=== PATIENT | male | born 1960 | race Caucasian/White ===

== ENCOUNTER 2018-05-23 19:33 | Emergency (ER) | payer MEDICARE, OTHER ==
[2018-05-23 19:48] VITALS: TEMP 98.4
[2018-05-23] MEDS ORDERED: KETOROLAC 30 MG/ML 1 ML VIAL IVP STA (20:34)
[2018-05-23] MEDS ORDERED: SODIUM CHLORIDE 0.9% 1,000 ML IV ONE (20:34)
[2018-05-23] MEDS ORDERED: MORPHINE SULFATE 2 MG/ML SYRINGE IVP STA (20:34)
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
[2018-05-23 21:54] LABS: Basophils % (A) 0 %; Eosinophils # (A) 0.2 k/uL (0-0.7); Eosinophils % (A) 1 %; HCT 44.7 % (39.0-53.0); HGB 14.8 gm/dL (13.0-17.5); Lymphocytes # (A) 2.5 k/uL (1.0-4.8); Lymphocytes % (A) 18 %; MCH 29.4 pg (25.0-35.0); MCHC 33.2 g/dL (31.0-37.0); MCV 88.5 fL (80.0-100.0); Mean Platelet Volume 8.4; Monocytes # (A) 0.5 k/uL (0-1.0); Monocytes % (A) 4 %; Neutrophils # (A) 10.5 k/uL (1.3-7.7); Neutrophils % (A) 76 %; Platelet Count 191 k/uL (150-450); RBC 5.05 m/uL (4.30-5.90); RDW 13.2 % (11.5-15.5); WBC 13.9 k/uL (3.8-10.6)
[2018-05-23] MEDS ORDERED: SULFAMETH-TMP DS STARTER PACK 2 TAB BTL PO STA (22:03)
[2018-05-23] MEDS ORDERED: NAFCILLIN 2 GM in DEXTROSE 5% IN WATER 50 ML IVPB STA ×2 (22:03)
[2018-05-23 22:05] LABS: ALT 18 U/L (21-72); AST 25 U/L (17-59); Albumin 4.2 g/dL (3.5-5.0); Alkaline Phosphatase 56 U/L (38-126); Anion Gap 10 mmol/L; Blood Urea Nitrogen 13 mg/dL (9-20); Calcium 9.3 mg/dL (8.4-10.2); Carbon Dioxide 24 mmol/L (22-30); Chloride 106 mmol/L (98-107); Glucose 89 mg/dL (74-99); Potassium 4.3 mmol/L (3.5-5.1); Sodium 140 mmol/L (137-145); Total Bilirubin 0.7 mg/dL (0.2-1.3); Total Protein 7.4 g/dL (6.3-8.2)
[2018-05-23] MEDS ORDERED: CEPHALEXIN 500MG STARTER PACK 4 CAP BTL PO STA (22:13)
[2018-05-23 23:58] VITALS: BP 125/78; PULSE 71; RESP 16
== END 2018-05-23 23:59 | disposition home or self-care (01) ==
LOC: EC 19:33
DX: T81.4XXA Infection following a procedure, initial encounter (principal); D72.829 Elevated white blood cell count, unspecified; F17.200 Nicotine dependence, unspecified, uncomplicated; Z85.828 Personal history of other malignant neoplasm of skin; Z79.891 Long term (current) use of opiate analgesic
CPT/HCPCS: 36415; 80053; 85025; 87040; 99283; 96365; 96375 ×2; 96361; J1885; J2270

== ENCOUNTER → 2019-11-11 | Outpatient (CLI) | payer MEDICARE, OTHER ==
--- NOTE | 2019-11-11 10:09 | CTL ---
EXAMINATION TYPE: CT Low Dose Lung DATE OF EXAM ORDERED: 11/11/2019 HISTORY: Personal history of tobacco abuse. Lung cancer screening CT DLP: 98.[address] CTDI: 2.7 mGy Automated exposure control for dose reduction was used. SCREENING VISIT: Initial COMPARISON: None TECHNIQUE: Low dose computed tomography scan was performed through the chest at 1 mm thick sections a nd reconstructed images in the coronal plane at [address] DIAGNOSTIC QUALITY: Satisfactory FINDINGS: LUNG NODULES: Present, detailed below: There is a left upper lobe masslike consolidation measuring 3.5 x 2.5 cm with spiculated borders and internal air bronchograms. There is surrounding groundglass density. This abuts the mediastinal borde r on image 156 and is measured on image 154. This begins at the distal aspect of a segmental bronchus to the left upper lobe and would be amenable to bronchoscopy. There is a 3 mm solid pulmonary nodule in the anterolateral right upper lobe on series 4 image 115. There is a 5 x 3 mm solid pulmonary nodule in the lateral right lower lobe on image 201. Benign calcified right basilar punctate pulmonary nodule on image 223. There is a punctate 1 x 1 mm left upper lobe pulmonary nodule on image 29.a this appears solid in justin ure. LUNGS: COPD: Severity: Mild Fibrosis: Severity: None Lymph nodes: Nonenlarged Other findings: Minimal bibasilar subsegmental atelectasis. RIGHT PLEURAL SPACE: Effusion: None Calcification: None Thickening: None Pneumothorax: None LEFT PLEURAL SPACE: Effusion: None Calcification: None Thickening: None Pneumothorax: None HEART: Heart Size: Nonenlarged Coronary calcification: Moderate Pericardial effusion: None OTHER FINDINGS: Upper abdomen: Unenhanced limited portions are suboptimally evaluated however there appears to be a l obulated border of the left hepatic lobe near the fissure for the falciform ligament concerning for h epatic mass measuring 4.2 x 3.4 cm. Very small hiatal hernia. Bony thorax: Mild multilevel degenerative change of the spine. IMPRESSION: 1. LUNG RADS 4B, suspicious, findings for which additional diagnostic testing and/or tissue sampling is recommended. The left upper lobe mass appears amenable to bronchoscopy and biopsy with bronchoscop y would be recommended and/or PET CT. Additional pulmonary nodules are seen bilaterally that are subc entimeter. 2. Hepatic mass for which further characterization with three-phase enhanced CT abdomen is recommende d. FOLLOW UP CT CHEST RECOMMENDATION: Follow-up with clinician for suspicious findings CT LUNG RAD: IVb A Yellow level critical message alert has been initiated for Eve Yung MD via the [employer] Critical Results System on 11/11/2019 10:07 AM. This message alert has been sent to Eve Elizabeth MD via the preferences provided by the clinician for the receipt of Radiology Critical Findings . Message ID [id number].
== END | disposition home or self-care (01) ==
LOC: RADCTMAIN 09:13
PROVIDERS: ATTEND Family Medicine
DX: Z12.2 Encounter for screening for malignant neoplasm of respiratory organs (principal); R91.8 Other nonspecific abnormal finding of lung field; Z87.891 Personal history of nicotine dependence

== ENCOUNTER → 2019-11-15 | Outpatient (CLI) | payer MEDICARE, OTHER ==
--- NOTE | 2019-11-17 07:55 | PE ---
EXAMINATION TYPE: PET CT fusion whole body DATE OF EXAM: 11/15/2019 COMPARISON: Low dose lung CT dated 11/11/2019 HISTORY: Lung nodule. History of melanoma in 2018 of the right back/shoulder. TECHNIQUE: Following the intravenous administration of 9.711 mCi of F-18 FDG, whole body images are performed from the skull base to the midthigh. Images are reviewed on the computer in the coronal, a xial, and sagittal planes. Reconstructed rotating images are created on independent workstation and reviewed on the computer. A localization and attenuation correction CT is performed in conjunction with the PET scan. SCAN: Initial treatment strategy FINDINGS: Mediastinal background: 1.77 Abdominal background: 2.88 SKULL BASE AND NECK: No suspicious hypermetabolic uptake. CHEST, MEDIASTINUM, AND HILAR REGION: The previously seen masslike consolidation of the left upper lo be that measured 3.5 x 2.5 cm on the exam of 11/15/2011 appears slightly smaller in size on today's ex am measuring 2.4 x 2.0 cm, however surrounding atelectasis may have resolved and this does remain bang picious as there is hypermetabolic uptake with a maximum SUV of 4.26. Bronchoscopy is recommended. No suspicious hilar nor supraclavicular adenopathy. Particularly no hypermetabolic uptake is seen of the right shoulder/back in the area of scarring from prior surgical removal of melanoma on series 3 image 90. The other scattered subcentimeter pulmonary nodules seen on the prior CT of 11/11/2019 are below the t hreshold of PET CT at this time given their small size. ABDOMEN AND PELVIS: No suspicious hypermetabolic uptake. There is no suspicious uptake along the lobu lated border of the left hepatic lobe at the fissure for the falciform ligament. This questionably co nnects with the left main portal vein and could represent a varicosity. CT with contrast is recommend ed. OSSEOUS STRUCTURES: No suspicious hypermetabolic uptake. OTHER CT: Mild background centrilobular emphysema. Minimal basilar subsegmental atelectasis. Moderate coronary artery calcifications. Mild mucosal thickening of the maxillary sinuses. Mild to moderate d egenerative changes of the spine. Severe atherosclerosis of the abdominal aorta and its branches. Few scattered colonic diverticula without pericolonic fat stranding. IMPRESSION: 1. Hypermetabolic left perihilar nodule with surrounding consolidation concerning for neoplasm, bronc hoscopy is recommended. 2. No hypermetabolic uptake of the lobulated mass of the left hepatic lobe along the fissure for the falciform ligament, questionably in continuity with the left main portal vein. CT with contrast or MR liver mass protocol recommended for further evaluation as this is indeterminant. 3. No hypermetabolic uptake of the posterior right shoulder at the area of previously removed melanom a. 4. No suspicious hilar, mediastinal or supraclavicular adenopathy. No findings to suggest infradiaphr agmatic metastasis.
== END | disposition home or self-care (01) ==
LOC: RADPETMAIN 12:06
PROVIDERS: ATTEND Family Medicine
DX: R91.1 Solitary pulmonary nodule (principal); J18.1 Lobar pneumonia, unspecified organism; C43.59 Malignant melanoma of other part of trunk; Z98.890 Other specified postprocedural states
CPT/HCPCS: 78816; A9552

== ENCOUNTER → 2019-12-08 | Outpatient (CLI) | payer MEDICARE, OTHER ==
--- NOTE | 2019-12-08 14:34 | CT ---
EXAMINATION TYPE: CT chest wo con DATE OF EXAM: 12/08/2019 COMPARISON: Correlation PET/CT 11/15/2019 HISTORY: 59-year-old male with lung mass, R91.8, Follow up scan per patient. TECHNIQUE: Contiguous axial scanning of the chest without IV contrast. Coronal and sagittal reconstru ctions performed. CT DLP: 330.2 mGycm Automated exposure control for dose reduction was used. FINDINGS: Heart normal size without pericardial effusion. Scattered pericolic indications are present. Aorta normal caliber with conventional branching anatomy. No thoracic lymphadenopathy by CT size criteria. Redemonstrated focal inferior lingular opacity measuring 1.7 cm, decreased in size and overall densit y as compared to 11/15/2019. A calcified granuloma is present just below. Improved hazy densities in the bilateral lower lungs compatible with resolution of previous atelectas is. Some residual strandy atelectasis remains on both sides. No new consolidation or pleural effusion . Stable lobulated mass anterior segment 2/3 of liver lobe remains indeterminate given intermediate att enuation measuring 4.5 cm. Visualized upper abdomen otherwise shows no gross abnormality. Bones: Moderate degenerative disc disease throughout the thoracic spine. IMPRESSION: 1. FOCAL INFERIOR LINGULAR OPACITY CURRENTLY LESS DEFINED AND SMALLER AT 1.7 CM VERSUS UP TO 2.4 CM, PREVIOUSLY. THIS FINDING SUGGESTS AN INFECTIOUS/INFLAMMATORY FOCUS RATHER THAN NEOPLASM. CONTINUED FO LLOW-UP RECOMMENDED TO ENSURE COMPLETE CLEARANCE. 2. REDEMONSTRATED LOBULATED LEFT HEPATIC LOBE MASS MEASURING 4.5 CM. THIS CONTINUES TO SHOW INTERMEDI ATE ATTENUATION. A COMPLICATED CYST OR SOLID MASS ARE BOTH POSSIBLE. MULTIPHASIC LIVER MRI CAN BETTER CHARACTERIZE AND FURTHER EVALUATE. THE LACK OF FDG UPTAKE MAKES MALIGNANCY LESS LIKELY.
== END | disposition home or self-care (01) ==
LOC: RADCTMAIN 11:57
PROVIDERS: ATTEND Internal Medicine Pulmonary Disease
DX: R91.8 Other nonspecific abnormal finding of lung field (principal)
CPT/HCPCS: 71250

== ENCOUNTER → 2021-05-11 | Outpatient (CLI) | payer MEDICARE, OTHER ==
--- NOTE | 2021-05-11 18:43 | CT ---
EXAMINATION TYPE: CT chest wo con DATE OF EXAM: 05/11/2021 COMPARISON: 12/08/2019 HISTORY: Lung mass. CT DLP: 316.9 mGycm, Automated exposure control for dose reduction was used. CONTRAST: Performed injected with 0 mL of Isovue 300. TECHNIQUE: Axial images were obtained at 5 mm thick sections. Reconstructed images are reviewed on [employer] computer in the coronal plane. FINDINGS: Portion of the thyroid visualized is normal. No suspicious lung nodules or focal infiltrates are present. There are some scattered infiltrates monica r the bases which may be related to atelectasis. The previous density within the lingula has resolved . No enlarged mediastinal or hilar adenopathy is evident. The ascending aorta diameter at the level o f the main pulmonary artery is 3.6 cm. The main pulmonary artery diameter at the bifurcation is 2.[address] sections are obtained through the upper abdomen. Previous hepatic mass just to the left of the ligamentum teres currently measures 4.4 cm which is stable from comparison. IMPRESSIONS: 1. Resolution previous lingular infiltrate. 2. Stable appearance of hepatic mass. 3. There are some scattered mild streak opacities within the lung bases more likely related to atelec tasis.
== END | disposition home or self-care (01) ==
LOC: RADCTMAIN 12:35
PROVIDERS: ATTEND Internal Medicine Pulmonary Disease
DX: R91.8 Other nonspecific abnormal finding of lung field (principal); K76.89 Other specified diseases of liver
CPT/HCPCS: 71250

== ENCOUNTER → 2022-05-03 | Outpatient (CLI) | payer OTHER, MEDICARE ==
--- NOTE | 2022-05-03 11:47 | XR ---
EXAMINATION TYPE: XR hand complete LT DATE OF EXAM: 05/03/2022 COMPARISON: NONE HISTORY: Pain TECHNIQUE: Three views are submitted. FINDINGS: The osseous structures are intact. The joint spaces are preserved and there is no acute fracture or dislocation. Patella density overlying the base of the fifth metacarpal could be on the basis of baldo or surgery. Narrowing of all DIP joints noted. IMPRESSION: 1. No definite acute fracture or dislocation if symptoms persist, follow-up study in 7 to 10 days wo uld be suggested. Metallic density overlying the base of the fifth metacarpal of indeterminate etiolo gy correlate for prior surgery or foreign body.
--- NOTE | 2022-05-03 11:48 | XR ---
EXAMINATION TYPE: XR shoulder complete LT DATE OF EXAM: 05/03/2022 COMPARISON: NONE HISTORY: Pain TECHNIQUE: Three views are submitted. FINDINGS: The osseous structures are intact. There is no acute fracture or dislocation. Mild widening of the A C joint.. IMPRESSION: 1. Mild widening of the AC joint correlated with dedicated AC joint series to assess for AC joint sep aration. Alternatively an MRI could be obtained.
--- NOTE | 2022-05-03 11:50 | XR ---
EXAMINATION TYPE: XR wrist complete LT DATE OF EXAM: 05/03/2022 COMPARISON: NONE HISTORY: Pain TECHNIQUE: Four views submitted. FINDINGS: The osseous structures are intact. The joint spaces are preserved and there is no acute fracture or dislocation. Cystic change involving the scaphoid. Metallic density overlying fifth metacarpal. IMPRESSION: 1. No definite acute fracture or dislocation if symptoms persist, follow-up study in 7 to 10 days wo uld be suggested. 2. Metallic density overlying base fifth metacarpal could be postsurgical correlate clinically. Diffe rential diagnosis would also include foreign body.
== END | disposition home or self-care (01) ==
LOC: RADXRMAIN 11:22
PROVIDERS: ATTEND Physician Assistant
DX: M79.642 Pain in left hand (principal)